=== PATIENT | male | born 1975 | race Caucasian/White ===

== ENCOUNTER 2021-05-12 06:13 | Day surgery (SDC) | payer OTHER ==
[~2021-05-12] VITALS: Ht 172.7 cm; Wt 82.7 kg
[~2021-05-12 06:13] MED LIST: SODIUM CHLORIDE 0.9% 1,000 ML ONE
[2021-05-12] MEDS ORDERED: ALBUTEROL SULFATE 2.5 MG/0.5 ML NEB SOLUTION NEB ONE (06:14)
[2021-05-12] MEDS ORDERED: LIDOCAINE 2% 30 ML JELLY TP ONE (06:14)
[2021-05-12] MEDS ORDERED: BENZOCAINE 20% 50 MCG/SPRAY 57 GM TP ONE (06:14)
[2021-05-12] MEDS ORDERED: SODIUM CHLORIDE 0.9% 1,000 ML IV ONE (06:30)
[2021-05-12] MEDS ORDERED: MONT-35 PO (06:38)
[2021-05-12] MEDS ORDERED: ASPI-1444 PO (06:38)
[2021-05-12] MEDS ORDERED: LISI-892 PO (06:39)
[2021-05-12] MEDS ORDERED: ISOS30TA68 PO (06:39)
[2021-05-12] MEDS ORDERED: ATOR10TA84 PO (06:39)
[2021-05-12] MEDS ORDERED: METO50 PO (06:39)
[2021-05-12] MEDS ORDERED: METF-960 PO (07:05)
[2021-05-12] MEDS ORDERED: FentaNYL CITRATE PF 100 MCG/2 ML VIAL ONE (07:12)
[2021-05-12] MEDS ORDERED: MIDAZOLAM HCL 5 MG/ML VIAL ONE (07:13)
[2021-05-12 07:17] LABS: GLUCOMETER DEV NAME(LOC) SDS.; GLUCOSE,POINT OF CARE 127 MG/DL (70-110)
[2021-05-12] MEDS ORDERED: MethylPREDNISolone SOD SUCC 125 MG/2 ML VIAL IVP ONE (09:00)
[2021-05-12] MEDS ORDERED: MethylPREDNISolone SOD SUCC 125 MG/2 ML VIAL ONE (09:32)
[2021-05-12] MEDS ORDERED: OXYGEN THERAPY IH SCH (20:00)
== END 2021-05-12 11:05 | disposition home or self-care (01) ==
LOC: SURGERY 06:13
PROVIDERS: ATTEND Internal Medicine Critical Care Medicine
DX: J38.4 Edema of larynx (principal); B37.0 Candidal stomatitis; E11.9 Type 2 diabetes mellitus without complications; I10 Essential (primary) hypertension; Z79.899 Other long term (current) drug therapy; Z79.82 Long term (current) use of aspirin
CPT/HCPCS: 31623; 31624; 71045; 82962; 87015; 87070; 87101; 87205; 87206; 87220; 88108; 88184; 88185; 88312; J2250; J2930; J3010; J7030; J7613